=== PATIENT | male | born 1960 | race Caucasian/White ===

== ENCOUNTER 2020-10-19 06:19 | Day surgery (SDC) | payer BC ==
[~2020-10-19] VITALS: Ht 167.6 cm; Wt 72.5 kg
[2020-10-19] MEDS ORDERED: EFFEXOR XR75 MG/CAP PO (06:42)
[2020-10-19] MEDS ORDERED: PEPCID 20MG TAB20 MG PO (06:42)
[2020-10-19 06:49] VITALS: BP 99/63; PULSE 73; TEMP 97.8
[2020-10-19 08:05] VITALS: BP 106/61; PULSE 74
--- NOTE | 2020-10-19 08:05 | NUR ---
Returns to [facility] [address] per cart and transfers from cart to recliner and tolerates activity well. Sipping on coffee and drinking water. Denies difficulty swallowing. IV fluids infusing and site is free of redness. Spouse in room.
[2020-10-19 08:20] VITALS: BP 99/74; PULSE 71
--- NOTE | 2020-10-19 08:20 | NUR ---
Dr. Briseno in the room and is talking with spouse and patient. Room air sats 96%.
[2020-10-19 08:35] VITALS: BP 103/71; PULSE 64
--- NOTE | 2020-10-19 08:35 | NUR ---
IV discontinued and site is free of redness. Given dismissal instructions and voices understanding of medications.
--- NOTE | 2020-10-19 08:41 | NUR ---
Patient dismissed to home driven by spouse and taken to the front door per wheelchair and assisted into vehicle with instructions in hand.
== END 2020-10-19 08:41 | disposition home or self-care (01) ==
LOC: SDCO 06:19
DX: K29.50 Unspecified chronic gastritis without bleeding (principal); K22.70 Barrett's esophagus without dysplasia; K26.4 Chronic or unspecified duodenal ulcer with hemorrhage; K44.9 Diaphragmatic hernia without obstruction or gangrene; K21.9 Gastro-esophageal reflux disease without esophagitis; M54.6 Pain in thoracic spine; F41.9 Anxiety disorder, unspecified; Z79.899 Other long term (current) drug therapy; F32.9 Major depressive disorder, single episode, unspecified; G47.33 Obstructive sleep apnea (adult) (pediatric); F17.210 Nicotine dependence, cigarettes, uncomplicated; F17.290 Nicotine dependence, other tobacco product, uncomplicated
CPT/HCPCS: J7030